=== PATIENT | male | born 1980 | race Caucasian/White ===

== ENCOUNTER 2016-10-14 01:26 | Emergency (ER) | payer OTHER ==
[2016-10-14 01:51] LABS: BASOPHIL 0.7 % (0-2); EOSINOPHIL 1.8 % (0-5); HCT 38.9 % (42.0-52.0); HGB 13.5 g/dl (13.2-18.0); LYMPHOCYTE 37.6 % (15-48); MCH 30.1 pg (25.0-31.0); MCHC 34.7 g/dL (32.0-36.0); MCV 86.6 fL (78.0-100.0); MPV 9.3 fL (6.0-9.5); NEUTROPHIL 49.9 % (41-80); PLT 324 K/uL (150-400); RBC 4.49 M/uL (4.70-6.00); RDW 12.5 % (11.5-14.0)
[2016-10-14 02:01] LABS: INR 1.07 (0.9-1.2); PROTHROMBIN TIME 13.5 SECONDS (11.7-14.0); PTT 28.7 SECONDS (23.2-31.4)
[2016-10-14 02:07] LABS: ALBUMIN 4.3 g/dL (3.5-5.0); BILIRUBIN - TOTAL 0.5 mg/dL (0.1-1.0); CREATININE 1.2 mg/dL (0.7-1.2); GLOBULIN (CALCULATION) 2.4 g/dL (2.2-4.2); MAGNESIUM 2.06 mg/dL (1.40-2.10); POTASSIUM 3.9 mmol/L (3.5-5.1); TOTAL PROTEIN 6.7 g/dL (6.4-8.3)
[2016-10-14 02:09] LABS: MYOGLOBIN 28 ng/mL (26-65); PRO-BNP 16 pg/mL (0-125); TROPONIN T < 0.010 ng/mL
== END 2016-10-14 04:40 | disposition home or self-care (01) ==
LOC: FER 01:26
PROVIDERS: Emergency Medicine
DX: R07.89 Other chest pain (principal); Z90.79 Acquired absence of other genital organ(s)
CPT/HCPCS: 36415; 71010; 80053; 82550; 82553; 83735; 83874; 83880; 84484; 85025; 85610; 85730; 93005; J2270; J2405

== ENCOUNTER 2017-01-31 08:36 | Emergency (ER) | payer OTHER | END 2017-01-31 12:26 | disposition home or self-care (01) | LOC: FER 08:36 | DX: S20.212A Contusion of left front wall of thorax, initial encounter (principal); R55 Syncope and collapse; Z85.47 Personal history of malignant neoplasm of testis; Z88.8 Allergy status to other drugs, medicaments and biological substances; W19.XXXA Unspecified fall, initial encounter; Y92.89 Other specified places as the place of occurrence of the external cause; Y99.0 Civilian activity done for income or pay | CPT/HCPCS: 71010; 71250; 94010; J1170 ==